=== PATIENT | female | born 1990 | race Caucasian/White ===

== ENCOUNTER 2021-04-28 13:42 | Day surgery (SDC) | payer OTHER, MEDICAID ==
[2021-04-28 14:12] VITALS: BMI 28.1
[2021-04-28] MEDS ORDERED: hydrALAZINE 20 MG/ML VIAL SLOW IVP PRN (14:32)
== END 2021-04-28 17:46 | disposition home or self-care (01) ==
LOC: CSHLD/OP 13:42
PROVIDERS: ATTEND Obstetrics & Gynecology
DX: O36.8130 Decreased fetal movements, third trimester, not applicable or unspecified (principal); O48.0 Post-term pregnancy; Z3A.40 40 weeks gestation of pregnancy
CPT/HCPCS: 76819; 99281

== ENCOUNTER 2021-05-04 23:26 | Inpatient (IN) | payer MEDICAID, OTHER ==
[2021-05-05] MEDS ORDERED: Lidocaine 1% (PF) 30 ML VIAL SC PRN (00:14)
[2021-05-05] MEDS ORDERED: HYDROcodone/Acetaminophen 5/325 mg Tablet PO PRN ×3 (00:14→17:12)
[2021-05-05] MEDS ORDERED: hydrALAZINE 20 MG/ML VIAL SLOW IVP PRN ×2 (00:14→08:10)
[2021-05-05] MEDS ORDERED: Ondansetron PF 4 MG/2 ML Vial IVP PRN ×3 (00:14→08:10)
[2021-05-05] MEDS ORDERED: Ibuprofen 800 MG TAB PO PRN (00:14)
[2021-05-05] MEDS ORDERED: NS w/ Oxytocin 30 units 500 ML IV SCH (00:15)
[2021-05-05] MEDS ORDERED: Ondansetron ODT 4 MG TAB SL PRN (00:54)
[2021-05-05 02:31] LABS: Hemoglobin 12.5 g/dL (12.0-15.5); Mean Corpuscular HGB CONC 34.5 g/dL (32.0-36.0); Mean Corpuscular Hemoglobin 31.5 pg (27.0-33.0); Mean Corpuscular Volume 91.2 fl (81.6-98.3); Mean Platelet Volume 9.6 fl (7.4-10.4); Platelet Count 211 10x3/uL (150-450); RBC Distribution Width 13.6 % (11.5-14.5); Red Blood Cell (RBC) Count 3.97 10x6/uL (3.90-5.03); White Blood Cell (WBC) Count 13.1 10x3/uL (3.5-10.5)
[2021-05-05 02:59] VITALS: BMI 30.7
[2021-05-05 03:01] LABS: HIV (1/2) Antibody/Antigen Non-Reactive (NonReactive); Hep B Surf Ag Non-Reactive S/CO (NonReactive)
[2021-05-05 03:04] LABS: Syphilis Antibody Nonreactive (Nonreactive); Syphilis Antibody Index 0.03 S/CO (<1.00 Non-Reactive)
[2021-05-05] MEDS: Lactated Ringer's 1,000 ML IV SCH ×2 (03:20→03:55)
[2021-05-05] MEDS ORDERED: Fentanyl 2 mcg/Bup 0.1% Cadd 100 ML ONE (03:29)
[2021-05-05 03:37] LABS: HBSAg Index 0.14 S/CO (0-0.99); HIV 1/2 INDEX 0.05 S/CO (<1.00)
[2021-05-05] MEDS ORDERED: Acetaminophen 325 MG TAB PO PRN (03:59)
[2021-05-05] MEDS ORDERED: Lactated Ringer's 500 ML IV PRN (03:59)
[2021-05-05] MEDS ORDERED: Hydrocerin (Eucerin) Cream 120 gm Jar TOP PRN (03:59)
[2021-05-05] MEDS ORDERED: diphenhydrAMINE 50 MG/ML VIAL IVP PRN (03:59)
[2021-05-05] MEDS ORDERED: Naloxone HCl 0.4 mg/ml Vial IVP PRN ×2 (03:59)
[2021-05-05] MEDS ORDERED: ePHEDrine Sulfate 50 MG/10 ML VIAL SLOW IVP PRN (03:59)
[2021-05-05] MEDS ORDERED: Promethazine HCl 25 MG/ML VIAL IM PRN (03:59)
[2021-05-05] MEDS ORDERED: Communication Order-Pharmacy FS SCH (04:00)
[2021-05-05] MEDS ORDERED: Fentanyl 2 mcg/Bupivacaine 0.1% Cassette 100 ML EPIDURAL SCH (04:00)
[2021-05-05] MEDS ORDERED: diphenhydrAMINE 25 MG CAP PO PRN (08:10)
[2021-05-05] MEDS ORDERED: Lanolin Ointment 7 GM TUBE TOP PRN (08:10)
[2021-05-05] MEDS ORDERED: Milk Of Magnesia 30 ML UDCUP PO PRN (08:10)
[2021-05-05] MEDS ORDERED: Bisacodyl 10 MG SUPP PR PRN (08:10)
[2021-05-05] MEDS: Ferrous Sulfate 325 MG TAB PO SCH (11:05)
[2021-05-05] MEDS: Docusate Calcium (SURFAK) 240 MG CAP PO SCH ×2 (12:10→21:59)
[2021-05-05] MEDS: Prenatal Vitamin 1 TAB PO SCH (12:10)
[2021-05-05] MEDS: Ibuprofen 800 MG TAB PO SCH ×2 (14:06→22:00)
[2021-05-06] MEDS: Ibuprofen 800 MG TAB PO SCH ×2 (06:06→15:13)
[2021-05-06 06:16] LABS: Hemoglobin 9.7 g/dL (12.0-15.5); Mean Corpuscular HGB CONC 33.2 g/dL (32.0-36.0); Mean Corpuscular Hemoglobin 31.8 pg (27.0-33.0); Mean Corpuscular Volume 95.7 fl (81.6-98.3); Mean Platelet Volume 9.4 fl (7.4-10.4); Platelet Count 177 10x3/uL (150-450); RBC Distribution Width 14.3 % (11.5-14.5); Red Blood Cell (RBC) Count 3.05 10x6/uL (3.90-5.03); White Blood Cell (WBC) Count 14.4 10x3/uL (3.5-10.5)
[2021-05-06 07:57] VITALS: BP 94/63; TEMP 98.6
[2021-05-06] MEDS ORDERED: Boostrix 0.5 ML (Tdap) VIAL IM ONE (08:10)
[2021-05-06] MEDS: Docusate Calcium (SURFAK) 240 MG CAP PO SCH (08:35)
[2021-05-06] MEDS: Prenatal Vitamin 1 TAB PO SCH (08:35)
[2021-05-06] MEDS: Ferrous Sulfate 325 MG TAB PO SCH (08:35)
== END 2021-05-06 18:15 | disposition home or self-care (01) | DRG 807 ==
LOC: CSHLD/OP 23:26 → CSHLD 05-05 01:57 → CSHANTE 05-05 10:50
PROVIDERS: ADMIT Obstetrics & Gynecology; ATTEND Obstetrics & Gynecology
PROC: 10E0XZZ Delivery of Products of Conception, External Approach (ICD-10-PCS; principal; 2021-05-05)
PROC: 0UQMXZZ Repair Vulva, External Approach (ICD-10-PCS; 2021-05-05)
DX: O71.82 Other specified trauma to perineum and vulva (principal); Z37.0 Single live birth; Z3A.40 40 weeks gestation of pregnancy
CPT/HCPCS: 36415; 85027; 85461; 86762; 86780; 86850; 86870; 86900; 86901; 87340; 87389; 90384; 96372; J2590; J7120; Q0162

== ENCOUNTER 2023-01-05 13:39 | Emergency (ER) | payer BC, OTHER ==
[2023-01-05 14:40] LABS: #Basophils 0.1 10x3/uL (0.0-0.2); #Monocytes 0.4 10x3/uL (0.0-1.1); #Neutrophils 3.2 10x3/uL (1.5-8.4); %Basophils 0.8 % (0.0-2.0); %Eosinophils 0.7 % (0.0-6.0); %Lymphocytes 38.3 % (18.0-47.0); %Monocytes 6.9 % (0.0-10.0); Hemoglobin 13.4 g/dL (12.0-15.5); Mean Corpuscular HGB CONC 34.9 g/dL (32.0-36.0); Mean Corpuscular Hemoglobin 31.2 pg (27.0-33.0); Mean Corpuscular Volume 89.3 fl (81.6-98.3); Mean Platelet Volume 9.1 fl (7.4-10.4); Platelet Count 239 10x3/uL (150-450); RBC Distribution Width 12.5 % (11.5-14.5); White Blood Cell (WBC) Count 6.1 10x3/uL (3.5-10.5)
== END 2023-01-05 18:18 | disposition home or self-care (01) ==
LOC: CSHERS 13:39
DX: O03.4 Incomplete spontaneous abortion without complication (principal)
CPT/HCPCS: 76856; 84702; 85025

== ENCOUNTER 2023-08-10 19:02 | Day surgery (SDC) | payer BC, OTHER ==
[2023-08-10 19:37] VITALS: BMI 29.8
[2023-08-10] MEDS ORDERED: Acetaminophen 500 MG TAB PO SCH (20:15)
[2023-08-10] MEDS ORDERED: Lidocaine 4% Patch TD SCH (20:15)
[2023-08-10] MEDS ORDERED: Lactated Ringer's 1,000 ML IV SCH (20:30)
[2023-08-10 21:10] LABS: Fetal Membranes Rupture No Membranes Rupture (No Rupture)
[2023-08-10] MEDS ORDERED: Ondansetron ODT 4 MG TAB PO PRN (22:41)
== END 2023-08-11 00:20 | disposition home or self-care (01) ==
LOC: CSHLD/OP 19:02
PROVIDERS: ATTEND Obstetrics & Gynecology
DX: O47.1 False labor at or after 37 completed weeks of gestation (principal); O99.343 Other mental disorders complicating pregnancy, third trimester; F90.9 Attention-deficit hyperactivity disorder, unspecified type; Z88.2 Allergy status to sulfonamides; W10.8XXA Fall (on) (from) other stairs and steps, initial encounter
CPT/HCPCS: 76819; 84112; Q0162

== ENCOUNTER 2023-09-01 17:26 | Inpatient (IN) | payer BC, OTHER ==
[~2023-09-01 17:26] MED LIST: Bupivacaine 0.25% HCL 30 ML VIAL ONE
[2023-09-01] MEDS ORDERED: Misoprostol 200 MCG TAB PR PRN (18:03)
[2023-09-01] MEDS ORDERED: Lidocaine 1% (PF) 30 ML VIAL SC PRN (18:03)
[2023-09-01] MEDS ORDERED: HYDROcodone/Acetaminophen 5/325 mg Tablet PO PRN ×2 (18:03)
[2023-09-01] MEDS ORDERED: hydrALAZINE 20 MG/ML VIAL SLOW IVP PRN (18:03)
[2023-09-01] MEDS ORDERED: Ondansetron PF 4 MG/2 ML Vial IVP PRN ×2 (18:03→18:50)
[2023-09-01] MEDS ORDERED: Ibuprofen 800 MG TAB PO PRN (18:03)
[2023-09-01] MEDS ORDERED: Promethazine HCl 25 MG/ML VIAL IM PRN ×2 (18:03→18:50)
[2023-09-01] MEDS ORDERED: Oxytocin 30 units/NS 500 ML 500 ML ONE (18:04)
[2023-09-01] MEDS ORDERED: Lidocaine 1% (PF) 30 ML VIAL ONE (18:04)
[2023-09-01] MEDS ORDERED: Oxytocin 30 units/NS 500 ML 500 ML IV SCH (18:15)
[2023-09-01 18:19] LABS: Hemoglobin 12.3 g/dL (12.0-15.5); Mean Corpuscular HGB CONC 35.1 g/dL (32.0-36.0); Mean Corpuscular Hemoglobin 31.8 pg (27.0-33.0); Mean Corpuscular Volume 90.4 fl (81.6-98.3); Mean Platelet Volume 9.4 fl (7.4-10.4); Platelet Count 187 10x3/uL (150-450); RBC Distribution Width 13.6 % (11.5-14.5); Red Blood Cell (RBC) Count 3.87 10x6/uL (3.90-5.03); White Blood Cell (WBC) Count 13.9 10x3/uL (3.5-10.5)
[2023-09-01] MEDS ORDERED: fentaNYL/Ropivacaine Epidural 100 ML ONE (18:30)
[2023-09-01] MEDS ORDERED: Acetaminophen 325 MG TAB PO PRN (18:50)
[2023-09-01] MEDS ORDERED: Naloxone HCl 0.4 mg/ml Vial IVP PRN ×2 (18:50)
[2023-09-01] MEDS ORDERED: ePHEDrine Sulfate 50 MG/10 ML VIAL SLOW IVP PRN (18:50)
[2023-09-01] MEDS ORDERED: Lactated Ringer's 500 ML IV PRN (18:50)
[2023-09-01] MEDS ORDERED: diphenhydrAMINE 50 MG/ML VIAL IVP PRN (18:50)
[2023-09-01] MEDS ORDERED: Moisturizing Cream (Eucerin) 113 GM JAR TOP PRN (18:50)
[2023-09-01 18:52] LABS: Syphilis Antibody Nonreactive (Nonreactive); Syphilis Antibody Index 0.03 S/CO (<1.00 Non-Reactive)
[2023-09-01 18:54] LABS: HBSAg Index 0.17 S/CO (0-0.99); Hep B Surf Ag - L&D Non-Reactive S/CO (NonReactive)
[2023-09-01] MEDS ORDERED: Communication Order-Pharmacy FS SCH (19:00)
[2023-09-01] MEDS ORDERED: fentaNYL 2 mcg/Ropivacaine 0.2% Epidural 100 ML CADD EPIDURAL SCH (19:00)
[2023-09-01] MEDS ORDERED: Oxytocin 10 UNITS/ML VIAL ONE (23:39)
[2023-09-02] MEDS ORDERED: Boostrix 0.5 ML (Tdap) VIAL (>/=7 yrs of age) IM ONE (02:41)
[2023-09-02] MEDS ORDERED: Benzocaine-Menthol 82.5 ML CAN TOP PRN (02:41)
[2023-09-02] MEDS ORDERED: HYDROcodone/Acetaminophen 5/325 mg Tablet PO PRN (02:41)
[2023-09-02] MEDS ORDERED: Lanolin Ointment 7 GM TUBE TOP PRN (02:41)
[2023-09-02] MEDS ORDERED: hydrALAZINE 20 MG/ML VIAL SLOW IVP PRN (02:41)
[2023-09-02] MEDS ORDERED: Milk Of Magnesia 30 ML UDCUP PO PRN (02:41)
[2023-09-02] MEDS ORDERED: Oxytocin 30 units/NS 500 ML 500 ML IV SCH (02:41)
[2023-09-02] MEDS ORDERED: Misoprostol 200 MCG TAB VAG PRN (02:41)
[2023-09-02] MEDS ORDERED: Ondansetron PF 4 MG/2 ML Vial IVP PRN (02:41)
[2023-09-02] MEDS ORDERED: Bisacodyl 10 MG SUPP PR PRN (02:41)
[2023-09-02] MEDS: Ibuprofen 800 MG TAB PO SCH ×3 (02:54→16:58)
[2023-09-02] MEDS: HYDROcodone/Acetaminophen 5/325 mg Tablet PO PRN ×2 (06:41→22:12)
[2023-09-02] MEDS ORDERED: Prenatal Vitamin 1 TAB PO SCH (09:00)
[2023-09-02] MEDS ORDERED: Docusate 100 MG CAP PO SCH (09:00)
[2023-09-02] MEDS: Ferrous Sulfate 325 MG TAB PO SCH ×2 (09:49→16:58)
[2023-09-02 20:31] VITALS: BP 106/72; TEMP 98.9
== END 2023-09-02 23:00 | disposition home or self-care (01) | DRG 807 ==
LOC: CSHLD/OP 17:26 → CSHLD 18:18 → CSHPP 09-02 01:35
PROVIDERS: ADMIT Obstetrics & Gynecology; ATTEND Obstetrics & Gynecology
PROC: 10D07Z6 Extraction of Products of Conception, Vacuum, Via Natural or Artificial Opening (ICD-10-PCS; principal; 2023-09-01)
PROC: 3E033XZ Introduction of Vasopressor into Peripheral Vein, Percutaneous Approach (ICD-10-PCS; 2023-09-01)
PROC: 3E0334Z Introduction of Serum, Toxoid and Vaccine into Peripheral Vein, Percutaneous Approach (ICD-10-PCS; 2023-09-02)
DX: O75.9 Complication of labor and delivery, unspecified (principal); Z37.0 Single live birth; O26.893 Other specified pregnancy related conditions, third trimester; Z3A.39 39 weeks gestation of pregnancy
CPT/HCPCS: 36415; 51702; 85027; 85461; 86780; 86850; 86870; 86880; 86886; 86900; 86901; 86905; 87340; 90384; 96372; 99285; J2001; J2405; J2590; S0020